=== PATIENT | female | born 1955 | race Two or more races ===

== ENCOUNTER 2019-05-11 16:59 | Emergency (ER) | payer SELFPAY ==
[2019-05-11] MEDS ORDERED: MORPHINE SULFATE 4 MG/ML SYR/VIAL IV ONE (17:15)
[2019-05-11] MEDS ORDERED: ONDANSETRON HCL 4 MG/2 ML VIAL IV ONE (17:15)
[2019-05-11 17:38] LABS: Basophils # (auto) 0 uL; Basophils % (auto) 0.5 % (0.0-2.0); Eosinophils # (auto) 0.1 uL; Eosinophils % (auto) 1.1 % (0.0-7.0); Hemoglobin 14.1 g/dL (12.2-16.2); Lymphocytes # (auto) 1.4 uL; Mean Corpuscular Hemoglobin 31.8 pg (28.0-32.0); Mean Corpuscular Hgb Conc. 33.6 g/dL (32.0-36.0); Mean Corpuscular Volume 94.6 fL (80.0-100.0); Monocytes # (auto) 0.4 uL; Neutrophils # (auto) 7.4 uL; Neutrophils % (auto) 79.4 % (37.0-80.0); Platelet Count (auto) 171 10^3/uL (140-450); Red Blood Cells 4.44 10^6/uL (4.0-5.20); Red Cell Distribution Width 14.4 % (11.8-14.3); White Blood Cell 9.3 10^3/uL (4.4-10.8)
[2019-05-11 17:54] LABS: Alanine Aminotransferase 30 U/L (13-56); Albumin 4.1 g/dL (3.4-5.0); Anion Gap 10 (5-15); Aspartate Aminotransferase 18 U/L (15-37); BUN/Creatinine Ratio 15.9; Blood Urea Nitrogen 13 mg/dL (7-18); Calcium 9.1 mg/dL (8.5-10.1); Carbon Dioxide 27 mmol/L (21-32); Chloride 106 mmol/L (98-107); GFR African American 91 mL/min; GFR Non-African American 75 mL/min; Glucose 162 mg/dL (74-106); Magnesium 1.9 mg/dL (1.6-2.6); Sodium 143 mmol/L (136-145)
[2019-05-11 17:59] LABS: Alkaline Phosphatase 111 U/L (45-117); Bilirubin, Total 0.8 mg/dL (0.2-1.0); Total Protein 7.4 g/dL (6.4-8.2)
[2019-05-11] MEDS ORDERED: HYDROcodone-ACET 5/325MG TAB PO ONE (21:00)
[2019-05-11 21:52] LABS: Urine Bacteria FEW /hpf (None Seen); Urine Blood Negative /uL (Negative); Urine Specific Gravity 1.013 (1.001-1.035); Urine WBC 7 /hpf (0 - 5)
[2019-05-11] MEDS ORDERED: HYDROcodone-ACET 5/325MG TAB ONE (22:01)
[2019-05-11] MEDS ORDERED: POTASSIUM CHL 20 Meq TABLET PO ONE (22:30)
[2019-05-11] MEDS ORDERED: cefTRIAXone SOD 1,000 MG VL ONE (23:21)
[2019-05-11] MEDS ORDERED: LIDOCAINE 2% (LOCAL ANESTH.) PF 5ml SDV ONE (23:22)
[2019-05-11 23:37] VITALS: BP 132/78
== END 2019-05-11 23:42 | disposition home or self-care (01) ==
LOC: ER 16:59
DX: K57.30 Diverticulosis of large intestine without perforation or abscess without bleeding (principal); N39.0 Urinary tract infection, site not specified; F41.9 Anxiety disorder, unspecified
CPT/HCPCS: 36415; 71045; 74176; 80053; 81001; 83735; 84484; 85025; 99284; J0696; J2001; 93005